=== PATIENT | female | born 1990 | race Caucasian/White ===

== ENCOUNTER 2018-10-11 13:31 | Emergency (ER) | payer SELFPAY, MEDICAID ==
[2018-10-11 15:39] LABS: ADD MAN DIFF? NO
[2018-10-11 15:44] LABS: WHITE BLOOD COUNT 9.5 10^3/ul (4.8-10.8)
[2018-10-11 15:44] LABS: BASOPHILS % 0.2 % (0.0-2.0); EOSINOPHILS # 0.1 10^3/ul (0.0-0.5); EOSINOPHILS % 0.7 % (0.0-7.0); HEMATOCRIT 36.1 % (37.0-47.0); LYMPHOCYTES # 1.8 10^3/ul (0.8-2.9); MEAN CORPUSCULAR HEMOGLOBIN 30.2 pg (29.0-33.0); MEAN CORPUSCULAR HGB CONC 33.2 g/dl (32.0-37.0); MEAN CORPUSCULAR VOLUME 90.7 fl (82.0-101.0); MEAN PLATELET VOLUME 10.4 fl (7.4-10.4); MONOCYTE # 0.5 10^3/ul (0.3-0.9); MONOCYTES % 4.8 % (0.0-11.0); NEUTROPHIL # 7.1 10^3/ul (1.6-7.5); NEUTROPHILS % 74.9 % (39.0-77.0); PLATELET COUNT 202 10^3/UL (140-415); RED BLOOD COUNT 3.98 10^6/ul (4.20-5.40); RED CELL DISTRIBUTION WIDTH 13.2 % (11.5-14.5)
[2018-10-11 15:58] LABS: ADD UMIC YES; UR ASCORBIC ACID NEGATIVE (NEGATIVE); UR BACTERIA FEW /HPF (NONE SEEN); UR BILIRUBIN (Dip) NEGATIVE (NEGATIVE); UR BLOOD (Dip) 3+ mg/dL (NEGATIVE); UR CLARITY CLOUDY (CLEAR); UR COLOR RED (YELLOW); UR GLUCOSE (Dip) NEGATIVE (NEGATIVE); UR KETONES (Dip) NEGATIVE (NEGATIVE); UR LEUKOCYTE ESTERASE (Dip) 3+ Leu/ul (NEGATIVE); UR NITRITE (Dip) NEGATIVE (NEGATIVE); UR RBC 3 /HPF (0-5); UR SPECIFIC GRAVITY (Dip) 1.017 (1.003-1.030); UR SQUAMOUS EPITHELIAL CELL MANY /HPF (FEW); UR TOTAL PROTEIN (Dip) NEGATIVE (NEGATIVE); UR UROBILINOGEN (Dip) 1+ mg/dL (NEGATIVE); UR WBC 13 /HPF (0-5)
== END 2018-10-11 17:35 | disposition home or self-care (01) ==
LOC: FTE 13:31
DX: O20.9 Hemorrhage in early pregnancy, unspecified (principal); Z3A.15 15 weeks gestation of pregnancy
CPT/HCPCS: 36415; 76801; 81001; 84702; 85025; 86900; 86901; 99284-25

== ENCOUNTER 2019-03-22 20:48 | Outpatient (CLI) | payer OTHER | END 2019-03-23 01:36 | disposition home or self-care (01) | LOC: OBT 20:48 → L-D 20:49 | DX: O62.9 Abnormality of forces of labor, unspecified (principal); Z3A.39 39 weeks gestation of pregnancy | CPT/HCPCS: 76816 ==

== ENCOUNTER 2019-03-30 03:20 | Outpatient (CLI) | payer OTHER ==
[2019-03-30 04:42] LABS: RUPTURE FETAL MEMBRANES NEGATIVE (NEGATIVE)
== END 2019-03-30 07:50 | disposition home or self-care (01) ==
LOC: OBT 03:20 → L-D 03:20 → OBT 07:50
DX: O42.913 Preterm premature rupture of membranes, unspecified as to length of time between rupture and onset of labor, third trimester (principal); Z3A.39 39 weeks gestation of pregnancy
CPT/HCPCS: 76815; 84112

== ENCOUNTER 2019-03-30 13:09 | Inpatient (IN) | payer OTHER ==
[2019-03-30 14:48] LABS: RUPTURE FETAL MEMBRANES POSITIVE (NEGATIVE)
[2019-03-30] MEDS ORDERED: CARBOPROST 250 MCG INJ IM (15:30)
[2019-03-30] MEDS ORDERED: METHYLERGONOVINE 0.2 MG INJ IM (15:30)
[2019-03-30] MEDS ORDERED: OXYTOCIN 30 UNITS/LR 500 ML IV ×2 (15:30)
[2019-03-30] MEDS ORDERED: MISOPROSTOL 200 MCG TAB PR (15:30)
[2019-03-30] MEDS ORDERED: LIDOCAINE 1% (MPF) 30 ML INJ INJ (15:30)
[2019-03-30] MEDS ORDERED: BUTORPHANOL 2 MG INJ IV ×2 (15:30)
[2019-03-30 16:17] LABS: ADD MAN DIFF? NO; BASOPHILS % 0.3 % (0.0-2.0); EOSINOPHILS % 0.4 % (0.0-7.0); HEMATOCRIT 34.1 % (37.0-47.0); HEMOGLOBIN 11.1 g/dl (12.0-16.0); LYMPHOCYTES # 1.5 10^3/ul (0.8-2.9); LYMPHOCYTES % 19.3 % (15.0-51.0); MEAN CORPUSCULAR HEMOGLOBIN 28.7 pg (29.0-33.0); MEAN CORPUSCULAR HGB CONC 32.6 g/dl (32.0-37.0); MEAN CORPUSCULAR VOLUME 88.1 fl (82.0-101.0); MEAN PLATELET VOLUME 11.4 fl (7.4-10.4); MONOCYTE # 0.5 10^3/ul (0.3-0.9); MONOCYTES % 5.7 % (0.0-11.0); NEUTROPHIL # 5.8 10^3/ul (1.6-7.5); NEUTROPHILS % 73.7 % (39.0-77.0); PLATELET COUNT 147 10^3/UL (140-415); RED BLOOD COUNT 3.87 10^6/ul (4.20-5.40)
[2019-03-30 16:17] LABS: WHITE BLOOD COUNT 7.9 10^3/ul (4.8-10.8)
[2019-03-30] MEDS: LACTATED RINGER'S 1,000 ML IV (16:26)
[2019-03-30 16:35] LABS: INR 0.95; PROTIME 12.8 Sec (11.9-14.9)
[2019-03-30 16:36] LABS: PARTIAL THROMBOPLASTIN TIME 28.1 Sec (23.0-35.0)
[2019-03-30 17:12] LABS: HEPATITIS B SURFACE ANTIGEN NEGATIVE (NEGATIVE)
[2019-03-30] MEDS: OXYTOCIN 30 UNITS/LR 500 ML IV (20:50)
[2019-03-31] MEDS: ACETAMINOPHEN 325 MG TAB PO (01:57)
[2019-03-31] MEDS: LACTATED RINGER'S 1,000 ML IV ×2 (02:16→04:23)
[2019-03-31] MEDS ORDERED: HYDROmorphONE 0.5 MG/0.5 ML SYG IV ×2 (03:30)
[2019-03-31] MEDS ORDERED: KETOROLAC 30 MG INJ IV (03:30)
[2019-03-31] MEDS ORDERED: ONDANSETRON 4 MG INJ IV ×2 (03:30→09:00)
[2019-03-31] MEDS ORDERED: NALOXONE (0.4 MG/ML) INJ IV (03:30)
[2019-03-31] MEDS ORDERED: DIPHENHYDRAMINE 50 MG INJ IV ×2 (03:30→09:00)
[2019-03-31] MEDS: FENTAnyl 2MCG/ML-ROPIV 0.2% 100 ML BAG EPI (04:27)
[2019-03-31] MEDS ORDERED: AMPICILLIN 2 GM/NS (PMX) 100 ML IVPB (07:30)
[2019-03-31] MEDS ORDERED: GENTAMICIN 90 MG in SOD CHLORIDE 0.9% 100 ML IV (08:30)
[2019-03-31] MEDS: OXYTOCIN 30 UNITS/LR 500 ML IV ×2 (08:31→12:47)
[2019-03-31] MEDS ORDERED: SENNA/DOCUSATE NA (8.6MG/50MG) TAB PO (09:00)
[2019-03-31] MEDS ORDERED: DIPHENHYDRAMINE 25 MG CAP PO (09:00)
[2019-03-31] MEDS ORDERED: WITCH HAZEL/GLYCERIN PAD PR (09:00)
[2019-03-31] MEDS ORDERED: OXYTOCIN 30 UNITS/LR 500 ML IV (09:00)
[2019-03-31] MEDS ORDERED: MAGNESIUM HYDROXIDE 30ML CUP PO (09:00)
[2019-03-31] MEDS ORDERED: ONDANSETRON 4 MG TAB PO (09:00)
[2019-03-31] MEDS ORDERED: BENZOCAINE 20% 56 ML SPRAY TOP (09:00)
[2019-03-31] MEDS ORDERED: MISOPROSTOL 200 MCG TAB PR (09:00)
[2019-03-31] MEDS ORDERED: NA PHOSPHATE/BIPHOS 133 ML ENEMA PR (09:00)
[2019-03-31] MEDS ORDERED: HYDROCODONE/APAP (5/325) TAB PO (09:00)
[2019-03-31] MEDS ORDERED: CARBOPROST 250 MCG INJ IM (09:00)
[2019-03-31] MEDS ORDERED: DIBUCAINE 1% 30 GM OINT TOP (09:00)
[2019-03-31] MEDS: SENNA/DOCUSATE NA (8.6MG/50MG) TAB PO ×2 (11:40→21:55)
[2019-03-31] MEDS: LACTATED RINGER'S 1,000 ML IV* ×2 (11:40→19:45)
[2019-03-31] MEDS ORDERED: AMPICILLIN 1 GM/NS (PMX) 50 ML IVPB (12:00)
[2019-03-31 16:14] LABS: RAPID PLASMA REAGIN NONREACTIVE (NR)
[2019-04-01] MEDS: LACTATED RINGER'S 1,000 ML IV* ×3 (00:46→22:00)
[2019-04-01] MEDS: HYDROCODONE/APAP (5/325) TAB PO (00:50)
[2019-04-01] MEDS: IBUPROFEN 600 MG TAB PO ×3 (06:24→18:42)
[2019-04-01 09:27] LABS: ADD MAN DIFF? NO
[2019-04-01 09:30] LABS: WHITE BLOOD COUNT 10.4 10^3/ul (4.8-10.8)
[2019-04-01 09:30] LABS: BASOPHILS % 0.3 % (0.0-2.0); EOSINOPHILS # 0.1 10^3/ul (0.0-0.5); EOSINOPHILS % 0.9 % (0.0-7.0); HEMATOCRIT 30.5 % (37.0-47.0); HEMOGLOBIN 9.6 g/dl (12.0-16.0); LYMPHOCYTES # 2.7 10^3/ul (0.8-2.9); LYMPHOCYTES % 25.5 % (15.0-51.0); MEAN CORPUSCULAR HEMOGLOBIN 28.5 pg (29.0-33.0); MEAN CORPUSCULAR HGB CONC 31.5 g/dl (32.0-37.0); MEAN CORPUSCULAR VOLUME 90.5 fl (82.0-101.0); MEAN PLATELET VOLUME 11.5 fl (7.4-10.4); MONOCYTE # 0.6 10^3/ul (0.3-0.9); MONOCYTES % 5.5 % (0.0-11.0); NEUTROPHILS % 67.3 % (39.0-77.0); PLATELET COUNT 133 10^3/UL (140-415); RED BLOOD COUNT 3.37 10^6/ul (4.20-5.40)
[2019-04-01] MEDS: SENNA/DOCUSATE NA (8.6MG/50MG) TAB PO ×2 (10:11→21:59)
[2019-04-01] MEDS: LANOLIN HPA 1 PKT TOP (21:59)
[2019-04-02] MEDS: IBUPROFEN 600 MG TAB PO ×3 (00:28→11:47)
[2019-04-02] MEDS: LACTATED RINGER'S 1,000 ML IV* ×2 (00:46→08:46)
[2019-04-02] MEDS: DIPHTH/TET/ACEL PERTUSS (ADULT) 0.5 ML VIAL IM* (09:10)
[2019-04-02] MEDS: VARICELLA VACCINE LIVE/PF 1,350 UNIT/0.5 ML ML SC* (09:11)
[2019-04-02] MEDS: SENNA/DOCUSATE NA (8.6MG/50MG) TAB PO (09:12)
[2019-04-02] MEDS: MEASLES,MUMPS,RUBELLA VACCINE INJ SC* (09:13)
== END 2019-04-02 13:05 | disposition home or self-care (01) | DRG 807 ==
LOC: L-D 03-31 01:31 → OBT 13:09 → L-D 13:09 → PP1 03-31 15:08 → OBT 15:10 → L-D 15:10
PROVIDERS: Specialist
PROC: 10E0XZZ Delivery of Products of Conception, External Approach (ICD-10-PCS; principal; 2019-03-31)
DX: O80 Encounter for full-term uncomplicated delivery (principal); Z37.0 Single live birth; Z3A.39 39 weeks gestation of pregnancy
CPT/HCPCS: 62322; 76818; 84112; 85025; 85610; 85730; 86592; 86850; 86900; 86901; 87340; 90716